=== PATIENT | male | born 1945 | race Caucasian/White ===

== ENCOUNTER 2016-08-26 09:21 | Emergency (ER) | payer MEDICARE ==
[2016-08-26 10:26] VITALS: BP 139/90
--- NOTE | 2016-08-26 13:03 | UC ---
Brenda Lee Matthew, [facility] on 08/26/16 at 1104 . Throat Pain/Nasal [place] HPI - HPI Summary HPI Summary: Nurse's Note: "Head congestion" and central chest congestion, runny nose with congestion, and ear discomfort x 7 days. Reports fever like-symptoms, extreme fatigue. Patient states he has felt very light-headed in the mornings when he wakes up. Note: EKG obtained by nurse, because of lightheadedness in [place] morning. Hx of significant HI in 2007. Vital signs stable, no c/o of chest pain, pulse oxygen 99%, no alcohol, non-smoker, Hx also significant for kidney stones, cellulites, EKG comparison; patient's current EKG shows Q wave in V1 V2. Previous EKG reveals a normal EKG with no Q waves in 2007. Diminished R waves in 2009 and on August 2010 Q waves in V1 and V2 with elevated J point in V2. There is no significant change between the EKG of September 06, 2010 and Current Q wave findings on todays EKG. In Room Note: A 71 y/o male presents to [facility] with nasal congestion since 7 days ago. Associated symptoms include chest tightness, lightheadedness, head congestion, chest congestion, rhinorrhea, ear discomfort, productive cough, and lightheadedness in the morning and when bending over - since 3 months ago. The lightheadedness alleviates after ambulation. The patient denies chest pain, nausea, vomiting, and diarrhea. The patient does not have pain radiating into his arms or jaw. The chest tightness is not similar to his previous HI. His daughter was recently ill. Hx of URI and sinus infections. Last Abx use was a year ago. FHx of CAD. - History of Current Complaint Chief Complaint: UCGeneralIllness Stated Complaint: CONGEST,COUGH Time Seen by Provider: 08/26/16 10:27 Hx Obtained From: Patient Onset/Duration: Gradual Onset, Lasting Days, Still Present Severity: Moderate Cough: Productive Associated Signs & Symptoms: Positive: Sinus Discomfort, Nasal Discharge. Negative: Vomiting - Allergies/Home Medications Allergies/Adverse Reactions: Allergies Allergy/AdvReac Type Severity Reaction Status Date / Time No Known Allergies Allergy Verified 03/11/14 16:41 PMH/Surg Hx/FS Hx/Imm Hx Endocrine History Of: Denies: Diabetes, Thyroid Disease Cardiovascular History Of: Reports: Cardiac Disorders - HI 2008 ("massive"), Hypertension Respiratory History Of: Reports: Bronchitis - DX IN 06/13 Denies: COPD, Asthma GI/ History Of: Reports: Kidney Stones - REMOVED SURGICALLY Denies: Ulcer Neurological History Of: Reports: Migraine - Surgical History Surgical History: Yes Surgery Procedure, Year, and Place: Vasectomy; Kidney Stones - Family History Known Family History: Positive: Cardiac Disease - Social History Alcohol Use: None Substance Use Type: None Smoking Status (MU): Never Smoked Tobacco Have You Smoked in the Last Year: No - Immunization History Most Recent Influenza Vaccination: FALL 2012 Most Recent Tetanus Shot: UP TO DATE Most Recent Pneumonia Vaccination: UNSURE Review of Systems Constitutional: Negative Skin: Negative Eyes: Negative ENT: Ear Ache, Nasal Discharge, Other - head congestion Respiratory: Cough - Productive, Other - chest congestion and tightness Cardiovascular: Negative Gastrointestinal: Negative Genitourinary: Negative Motor: Negative Neurovascular: Negative Musculoskeletal: Negative Neurological: Other - lightheadedness - relating to position change supine to standing, bending over Psychological: Negative All Other Systems Reviewed And Are Negative: Yes Physical Exam Triage Information Reviewed: Yes Appearance: Well-Appearing, No Pain Distress, Well-Nourished Vital Signs: Initial Vital Signs Temp 98 F 08/26/16 10:08 Pulse 61 08/26/16 10:08 Resp 16 08/26/16 10:08 BP 139/90 08/26/16 10:08 Pulse Ox 99 08/26/16 10:08 Vital Signs Reviewed: Yes Eyes: Positive: Conjunctiva Clear ENT: Positive: Pharynx normal, TMs normal, Other: - MILD TENDERNESS OVER MAXILLARY SINUS. Negative: Muffled/hoarse voice Neck: Positive: Supple, Nontender Respiratory: Positive: Chest non-tender, Lungs clear, Normal breath sounds, No respiratory distress, Other: - Intermittent Cough Cardiovascular: Positive: RRR, No Murmur, Other: - No pain upon palpation of the anterior chest wall Abdomen Description: Positive: Nontender, No Organomegaly, Soft Bowel Sounds: Positive: Present Musculoskeletal Exam: Normal Musculoskeletal: Positive: Strength Intact Neurological: Positive: Alert Psychological: Positive: Age Appropriate Behavior Skin Exam: Normal Skin: Negative: rashes Diagnostics - EKG Cardiac Rate: NL - 65 bpm Cardiac Rhythm: Sinus: Normal - Q waves in V1 V2; Q waves present in EKG from Throat Pain/Nasal Course/Dx - Course Assessment/Plan: Patient with a Hx of significant anterior HI presents with congestion, sinus discomfort, and cough. He also described brief bouts of orthostasis when he picks up objects or moves from supine to standing, which rapidly resolves and is not accompained by nausea, vomiting, or diaphoresis. Described this to the patient as possible orthostasis related to his anti- hypertensive medications. 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 Comparison of old EKGs does not suggest that the current chest discomfort is cardiac in origin. I explained all of the above with the patient and he voiced understanding. - Differential Dx/Diagnosis Differential Diagnosis/HQI/PQRI: Other - pneumonia, sinusitis, bronchitis, Provider Diagnoses: Sinusitis/ bronchitis Discharge - Discharge Plan Condition: Stable Disposition: HOME Prescriptions: Amoxicillin (*) 875 mg PO BID #20 tab MDD 2 Patient Education Materials: Sinusitis (ED), Acute Bronchitis (ED) Referrals: Tianna Garcia MD [Primary Care Provider] - Additional Instructions: WE DISCUSSED: Your EKG did not show a new heart problem. Begin your antibiotic for sinusitis/bronchitis. Amoxicillin, one pill twice a day. You also have dizziness changing position. This may be related to your blood pressure medication. Check with your doctor next week. Move slowly as you change position. The documentation as recorded by the Brenda gilmore Matthew accurately reflects the service I personally performed and the decisions made by me, Kennedy Rodriguez MD.
== END 2016-08-26 11:12 | disposition home or self-care (01) ==
LOC: UCEAST 09:21
DX: J32.9 Chronic sinusitis, unspecified (principal); J20.9 Acute bronchitis, unspecified; I25.2 Old myocardial infarction; R94.01 Abnormal electroencephalogram [EEG]
CPT/HCPCS: 93005; 99212; G0463

== ENCOUNTER 2016-10-11 16:46 | Emergency (ER) | payer MEDICARE ==
[2016-10-11 17:35] VITALS: BP 145/74
[2016-10-11] MEDS ORDERED: cefTRIAXone VIAL(*) 250 MG VIAL IM ONE (17:49)
[2016-10-11] MEDS ORDERED: Azithromycin TAB* 250 MG PO ONE (17:49)
--- NOTE | 2016-10-11 17:54 | UC ---
Complaint Male HPI - HPI Summary HPI Summary: 71 yo male receive a text today that his partner had gonorrhea he is asymptomatic Only desires testing for gc/chlamydia - History of Current Complaint Chief Complaint: UCGU Stated Complaint: PERSONAL Time Seen by Provider: 10/11/16 17:39 Hx Obtained From: Patient Onset/Duration: Sudden Onset - NA Timing: Constant - NA Severity Initially: Mild - NONE Severity Currently: None Pain Intensity: 0 Pain Scale Used: 0-10 Numeric Location: None Associated Signs And Symptoms: Positive: Negative Prior STD Hx: none - Allergies/Home Medications Allergies/Adverse Reactions: Allergies Allergy/AdvReac Type Severity Reaction Status Date / Time No Known Allergies Allergy Verified 10/11/16 17:26 PMH/Surg Hx/FS Hx/Imm Hx Endocrine History Of: Denies: Diabetes, Thyroid Disease Cardiovascular History Of: Reports: Cardiac Disorders - [place] 2007, Hypertension Respiratory History Of: Reports: Bronchitis - DX IN 06/13 Denies: COPD, Asthma GI/ History Of: Reports: Kidney Stones - REMOVED SURGICALLY Denies: Ulcer Neurological History Of: Reports: Migraine - Surgical History Surgical History: Yes Surgery Procedure, Year, and Place: Vasectomy; Kidney Stones - Family History Known Family History: Positive: Cardiac Disease - Social History Alcohol Use: None Substance Use Type: None Smoking Status (MU): Never Smoked Tobacco Have You Smoked in the Last Year: No - Immunization History Most Recent Influenza Vaccination: FALL 2012 Most Recent Tetanus Shot: UP TO DATE Most Recent Pneumonia Vaccination: UNSURE Review of Systems Constitutional: Negative Skin: Negative Eyes: Negative ENT: Negative Respiratory: Negative Cardiovascular: Negative Gastrointestinal: Negative Genitourinary: Negative Motor: Negative Neurovascular: Negative Musculoskeletal: Negative Neurological: Negative Psychological: Negative All Other Systems Reviewed And Are Negative: Yes Physical Exam Triage Information Reviewed: Yes Appearance: Well-Appearing, No Pain Distress, Well-Nourished Vital Signs: Initial Vital Signs Temp 100.2 F 10/11/16 17:29 Pulse 74 10/11/16 17:29 Resp 16 10/11/16 17:29 BP 145/74 10/11/16 17:29 Pulse Ox 96 10/11/16 17:29 Vital Signs Reviewed: Yes ENT: Positive: Hearing grossly normal. Negative: Nasal congestion, Nasal drainage, Trismus, Muffled/hoarse voice Neck: Positive: Supple, Nontender Respiratory: Positive: Lungs clear, Normal breath sounds, No respiratory distress Cardiovascular: Positive: RRR, No Murmur Abdomen Description: Positive: Nontender - penis no lesions or d/c testicles normal orientation and lie, Other: Musculoskeletal: Positive: ROM Intact, No Edema Neurological: Positive: Alert Psychological Exam: Normal Skin Exam: Normal Complaint Male Course/Dx - Differential Dx/Diagnosis Provider Diagnoses: exposure to gonorrhea Discharge - Discharge Plan Condition: Stable Disposition: HOME Patient Education Materials: Sexually Transmitted Diseases (ED) Referrals: Tianna Garcia MD [Primary Care Provider] - If Needed Additional Instructions: we will treat you due to your exposure tests pending
[2016-10-11] MEDS ORDERED: cefTRIAXone VIAL(*) 1,000 MG VIAL ONE (18:15)
[2016-10-11] MEDS ORDERED: Lidocaine 1% MPF* 2 ML VIAL ONE (18:16)
== END 2016-10-11 18:58 | disposition home or self-care (01) ==
LOC: UCCORT 16:46
DX: Z20.2 Contact with and (suspected) exposure to infections with a predominantly sexual mode of transmission (principal); I25.2 Old myocardial infarction; I10 Essential (primary) hypertension; G43.909 Migraine, unspecified, not intractable, without status migrainosus; Z87.442 Personal history of urinary calculi
CPT/HCPCS: 81003; 87086; 87491; 87591; 96372; 99212; A9270-GY; G0463; J0696

== ENCOUNTER 2017-02-06 10:57 | Emergency (ER) | payer MEDICARE ==
[2017-02-06 11:01] VITALS: BP 151/77
--- NOTE | 2017-02-06 11:23 | UC ---
Respiratory Complaint HPI - HPI Summary HPI Summary: 3 DAYS OF PRODUCTIVE COUGH, CONGESTION, SINUS PRESSURE, MILD ST AND DRAINAGE. NO MEASURED FEVER BUT HAS HAD SWEATS. NO N/V/D. - History of Current Complaint Chief Complaint: UCRespiratory Stated Complaint: URI Time Seen by Provider: 02/06/17 11:15 Hx Obtained From: Patient Onset/Duration: Gradual Onset, Lasting Days, Still Present Timing: Constant Severity Initially: Moderate Severity Currently: Moderate Pain Intensity: 0 Pain Scale Used: 0-10 Numeric Character: Cough: Productive Aggravating Factors: Nothing Alleviating Factors: Nothing Associated Signs And Symptoms: Positive: URI, Nasal Congestion, Sinus Discomfort. Negative: Fever, Chills, Wheezing - Allergies/Home Medications Allergies/Adverse Reactions: Allergies Allergy/AdvReac Type Severity Reaction Status Date / Time No Known Allergies Allergy Verified 02/06/17 11:02 PMH/Surg Hx/FS Hx/Imm Hx Cardiovascular History: Cardiac Disease, Hypertension - Surgical History Surgical History: Yes Surgery Procedure, Year, and Place: Vasectomy; Kidney Stones - Family History Known Family History: Positive: Cardiac Disease - Social History Alcohol Use: None Substance Use Type: None Smoking Status (MU): Never Smoked Tobacco Have You Smoked in the Last Year: No - Immunization History Most Recent Influenza Vaccination: FALL 2012 Most Recent Tetanus Shot: UP TO DATE Most Recent Pneumonia Vaccination: UNSURE Review of Systems Constitutional: Negative ENT: Sore Throat, Nasal Discharge Respiratory: Cough Cardiovascular: Negative Gastrointestinal: Negative Neurological: Headache All Other Systems Reviewed And Are Negative: Yes Physical Exam Triage Information Reviewed: Yes Appearance: Well-Appearing, No Pain Distress, Well-Nourished Vital Signs: Initial Vital Signs Temp 98.2 F 02/06/17 10:59 Pulse 86 02/06/17 10:59 Resp 20 02/06/17 10:59 BP 151/77 02/06/17 10:59 Pulse Ox 99 02/06/17 10:59 Vital Signs Reviewed: Yes Eyes: Positive: Conjunctiva Clear ENT: Positive: Hearing grossly normal, Pharynx normal, TMs normal Neck: Positive: Supple, Nontender, No Lymphadenopathy Respiratory Exam: Normal Cardiovascular Exam: Normal Abdomen Description: Positive: Soft Musculoskeletal: Positive: No Edema Neurological: Positive: Alert Psychological: Positive: Age Appropriate Behavior Skin: Negative: rashes UC Diagnostic Evaluation - Laboratory O2 Sat by Pulse Oximetry: 99 Respiratory Course/Dx - Differential Dx/Diagnosis Provider Diagnoses: ACUTE SINUSITIS Discharge - Discharge Plan Condition: Stable Disposition: HOME Prescriptions: Amoxicillin/Clavulanate TAB* [Augmentin TAB 875*] 875 mg PO BID #20 tab guaiFENesin/CODIEN 100MG-10MG* [Robitussin AC 100Mg-10Mg*] 5 - 10 ml PO Q6H PRN #150 ml MDD 40ml PRN Reason: Cough Patient Education Materials: Sinusitis (ED) Referrals: Tianna Garcia MD [Primary Care Provider] - If Needed Additional Instructions: WILL COVER YOU WITH ANTIBIOTICS TODAY BUT PLEASE CONSIDER THAT YOU MAY HAVE A VIRAL INFECTION THAT WILL RESOLVE WITH TIME. COUGH MEDICINE AND OTC ALEVE NEEDED FOR SYMPTOM CONTROL. SEEK FOLLOW-UP IF YOU ARE NOT IMPROVING EXPECTED. PLEASE REMEMBER NOT TO TAKE THE COUGH MEDICINE WITH YOUR TRAMADOL THE CODEINE WITH THE TRAMADOL CAN HAVE ADDITIVE SEDATING EFFECTS.
== END 2017-02-06 11:43 | disposition home or self-care (01) ==
LOC: UCEAST 10:57
DX: J01.90 Acute sinusitis, unspecified (principal); I10 Essential (primary) hypertension; Z87.442 Personal history of urinary calculi
CPT/HCPCS: 99212; G0463

== ENCOUNTER 2018-05-24 13:22 | Emergency (ER) | payer MEDICARE ==
[2018-05-24 13:39] VITALS: BP 142/82
[2018-05-24] MEDS ORDERED: Aspirin 81 mg CHEW TAB* 81 MG TAB.CHEW PO ONE (14:04)
--- NOTE | 2018-05-24 14:05 | UC ---
Cardiac HPI - HPI Summary HPI Summary: 72-year-old male comes in to clinic today with a chief complaint of chest tightness. Been going on for about 3 days. It's intermittent. It's worse with deep breaths. At its worse is an 8 out of 10 right now it's about a 2 out of 10. It's in the center of his chest is not radiating anywhere. No edema no abdominal pain no known trauma. Patient had a heart attack back in 2007. He has not taken any aspirin today. He is not nauseous is not sweaty is slightly short of breath. - History of Current Complaint Chief Complaint: UCChestPain Stated Complaint: CHEST TIGHTNESS Time Seen by Provider: 05/24/18 13:41 Pain Intensity: 0 - Allergy/Home Medications Allergies/Adverse Reactions: Allergies Allergy/AdvReac Type Severity Reaction Status Date / Time No Known Allergies Allergy Verified 05/24/18 13:39 Home Medications: Home Medications Metoprolol Tartrate TAB* [Lopressor TAB*] 25 mg PO DAILY 05/24/18 [History Confirmed 05/24/18] Multivitamin [Multivitamins] 1 cap PO DAILY 05/24/18 [History Confirmed 05/24/18 ] Niacin [Niaspan] 500 mg PO DAILY 05/24/18 [History Confirmed 05/24/18] diPHENhydraMINE PO* [Benadryl PO 25 MG TAB*] 25 mg PO BEDTIME PRN 05/24/18 [ History Confirmed 05/24/18] PMH/Surg Hx/FS Hx/Imm Hx Previously Healthy: Yes Cardiovascular History: Hypertension, Myocardial Infarction - Surgical History Surgical History: Yes Surgery Procedure, Year, and Place: Vasectomy; Kidney Stones; hernia - Family History Known Family History: Positive: Cardiac Disease - Social History Alcohol Use: None Substance Use Type: None Smoking Status (MU): Never Smoked Tobacco Have You Smoked in the Last Year: No - Immunization History Most Recent Influenza Vaccination: FALL 2012 Most Recent Tetanus Shot: UP TO DATE Most Recent Pneumonia Vaccination: UNSURE Review of Systems All Other Systems Reviewed And Are Negative: Yes Constitutional: Positive: Negative Skin: Positive: Negative Eyes: Positive: Negative ENT: Positive: Negative Respiratory: Positive: Shortness Of Breath Cardiovascular: Positive: Chest Pain Gastrointestinal: Positive: Negative Motor: Positive: Negative Neurovascular: Positive: Negative Musculoskeletal: Positive: Negative Neurological: Positive: Negative Psychological: Positive: Negative Is Patient Immunocompromised?: No Physical Exam Triage Information Reviewed: Yes Appearance: Well-Appearing, No Pain Distress, Well-Nourished Vital Signs: Initial Vital Signs Temp 98.6 F 05/24/18 13:36 Pulse 72 05/24/18 13:36 Resp 18 05/24/18 13:36 BP 142/82 05/24/18 13:36 Pulse Ox 96 05/24/18 13:36 Vital Signs Reviewed: Yes Eye Exam: Normal Eyes: Positive: Conjunctiva Clear Neck exam: Normal Neck: Positive: Supple Respiratory Exam: Normal Respiratory: Positive: Chest non-tender, Lungs clear, Normal breath sounds, No respiratory distress Cardiovascular Exam: Normal Cardiovascular: Positive: RRR Abdomen Description: Positive: Nontender, Soft. Negative: Distended Musculoskeletal Exam: Normal Musculoskeletal: Positive: Strength Intact, ROM Intact, No Edema Neurological Exam: Normal Neurological: Positive: Alert, Muscle Tone Normal Psychological Exam: Normal Psychological: Positive: Age Appropriate Behavior Skin Exam: Normal Diagnostics - EKG Cardiac Rate: NL - AT 13:31 Cardiac Rhythm: Sinus: Normal - 69 BPM Ectopy: None ST Segment: Non-Specific EKG Comparison: No Significant Change - Assessment/Plan Course Of Treatment: The EKG today shows normal sinus 69 beats per minutes there is a flipped T in 3 and flat T in aVF. EKG is similar to the EKG from August 2016. Patient given 324 mg of aspirin here in clinic and I recommended he go to the emergency department for further evaluation. He declined transfer by ambulance and plans to drive himself. Emergency department was informed of the patient. - Clinical Impression Provider Diagnoses: CHEST PAIN Discharge - Sign-Out/Discharge Documenting (check all that apply): Patient Departure All imaging exams completed and their final reports reviewed: No Studies - Discharge Plan Condition: Stable Disposition: HOME-RECOMMEND TO ED Patient Education Materials: Chest Pain (ED) Referrals: Tianna Garcia MD [Primary Care Provider] - Additional Instructions: GO DIRECTLY TO THE EMERGENCY DEPARTMENT FOR FURTHER EVALUATION. - Billing Disposition and Condition Condition: STABLE Disposition: Home-Recommend to ED
== END 2018-05-24 14:09 | disposition home health service (06) ==
LOC: UCEAST 13:22
DX: R07.9 Chest pain, unspecified (principal); I25.2 Old myocardial infarction
CPT/HCPCS: 93005; 99212; A9270-GY; G0463

== ENCOUNTER 2018-05-24 14:30 | Emergency (ER) | payer MEDICARE ==
[2018-05-24] MEDS ORDERED: Nitroglycerin TAB 0.4 MG* 0.4 MG TAB SL ONE (14:46)
--- NOTE | 2018-05-24 14:46 | ED ---
HPI Chest Pain - HPI Summary HPI Summary: A 72 y/o male presents to [facility] with a chief complaint of chest pain since 05/22. He rates his pain as a constant 2/10 and describes the pain as chest tightness. He claims that swallowing and deep breaths worsens her pain. He also c/o SOB. He denies N/V. He has a Hx of AZ but states that his symptoms were not similar and much more severe when he had his AZ. He took 4 aspirin and 2 tramadol this morning. He states that he usually takes 2 tramadol in the morning and 2 tramadol at night. - History of Current Complaint Chief Complaint: EDChestPainROMI Time Seen by Provider: 05/24/18 14:41 Hx Obtained From: Patient Onset/Duration: Started Days Ago, Still Present Timing: Constant, Lasting Days Initial Severity: Mild Current Severity: Mild Pain Intensity: 2 Pain Scale Used: 0-10 Numeric Character: Tightness Aggravating Factor(s): Deep Breaths, Alcohol - swallowing Associated Signs and Symptoms: Positive: Shortness of Breath. Negative: Nausea , Vomiting - Allergy/Home Medications Allergies/Adverse Reactions: Allergies Allergy/AdvReac Type Severity Reaction Status Date / Time No Known Allergies Allergy Verified 05/24/18 14:38 PMH/Surg Hx/FS Hx/Imm Hx Endocrine/Hematology History: Denies: Hx Diabetes, Hx Thyroid Disease Cardiovascular History: Reports: Hx Coronary Artery Disease, Hx Hypercholesterolemia, Hx Hypertension Respiratory History: Reports: Hx Seasonal Allergies, Hx Sleep Apnea Denies: Hx Asthma, Hx Chronic Obstructive Pulmonary Disease (COPD) GI History: Denies: Hx Ulcer History: Reports: Hx Kidney Stones - REMOVED SURGICALLY Sensory History: Reports: Hx Contacts or Glasses Opthamlomology History: Reports: Hx Contacts or Glasses Neurological History: Reports: Hx Migraine - Surgical History Surgery Procedure, Year, and Place: Vasectomy; Kidney Stones; hernia Infectious Disease History: No Infectious Disease History: Denies: Hx Clostridium Difficile, Hx Hepatitis, Hx Human Immunodeficiency Virus (HIV), Hx of Known/Suspected MRSA, Hx Shingles, Hx Tuberculosis, Hx Known/ Suspected VRE, Hx Known/Suspected VRSA, History Other Infectious Disease, Traveled Outside the [place] in Last 30 Days - Family History Known Family History: Positive: Cardiac Disease Negative: Diabetes - Social History Alcohol Use: None Substance Use Type: Reports: None Smoking Status (MU): Never Smoked Tobacco Have You Smoked in the Last Year: No Review of Systems Positive: Chest Pain Positive: Shortness Of Breath Negative: Vomiting, Nausea All Other Systems Reviewed And Are Negative: Yes Physical Exam - Summary Physical Exam Summary: VITAL SIGNS: Reviewed. GENERAL: Patient is a well-developed and nourished MALE who is lying comfortable in the stretcher. Patient is not in any acute respiratory distress. HEAD AND FACE: No signs of trauma. No ecchymosis, hematomas or skull depressions. No sinus tenderness. EYES: PERRLA, EOMI x 2, No injected conjunctiva, no nystagmus. EARS: Hearing grossly intact. Ear canals and tympanic membranes are within normal limits. MOUTH: Oropharynx within normal limits. NECK: Supple, trachea is midline, no adenopathy, no JVD, no carotid bruit, no c- spine tenderness, neck with full ROM. CHEST: Symmetric, no tenderness at palpation LUNGS: Clear to auscultation bilaterally. No wheezing or crackles. CVS: Regular rate and rhythm, S1 and S2 present, no murmurs or gallops appreciated. ABDOMEN: Soft, non-tender. No signs of distention. No rebound no guarding, and no masses palpated. Bowel sounds are normal. EXTREMITIES: FROM in all major joints, no edema, no cyanosis or clubbing. NEURO: Alert and oriented x 3. No acute neurological deficits. Speech is normal and follows commands. SKIN: Dry and warm Triage Information Reviewed: Yes Vital Signs On Initial Exam: Initial Vitals Temp Pulse Resp BP Pulse Ox 97.5 F 73 16 147/88 96 05/24/18 14:34 05/24/18 14:34 05/24/18 14:34 05/24/18 14:34 05/24/18 14:34 Vital Signs Reviewed: Yes Diagnostics - Vital Signs Vital Signs Temp Pulse Resp BP Pulse Ox 05/24/18 14:34 97.5 F 73 16 147/88 96 - Laboratory Result Diagrams: 05/24/18 14:59 05/24/18 14:59 Lab Statement: Any lab studies that have been ordered have been reviewed, and results considered in the medical decision making process. - Radiology CXR Radiology Interpretation Completed By: Radiologist - No active cardiopulmonary disease is noted. ED physician reviewed this imaging report. - EKG 14:59 Cardiac Rate: NL - 70 bpm EKG Rhythm: Sinus Rhythm Summary of EKG Findings: no ST elevation, inverted t-wave v3 similar to previous EKG done 09/06/10. Chest Pain Course/Dx - Course Assessment/Plan: A 72 y/o male presents to [facility] with a chief complaint of chest pain since 05/22/18. He rates his pain as a constant 2/10 and describes the pain as chest tightness. He claims that swallowing and deep breaths worsens her pain. He also c/o SOB. He denies N/V. He has a Hx of AZ but states that his symptoms were not similar and much more severe when he had his AZ. He took 4 aspirin and 2 tramadol this morning. He states that he usually takes 2 tramadol in the morning and 2 tramadol at night. Blood work without any significant abnormality except for magnesium 1.8 for which the patient was given magnesium by mouth. D-dimer is elevated to 529. Therefore I decided to a chest CTA to rule out PE. The patient is awaiting for the chest CTA and at this time the patient will be signed out to Dr. Novak for follow-up the chest CT results and if negative the patient can be discharged home with follow-up with primary care physician. At this time the patient is hemodynamically stable alert oriented 3. - Chest Pain Differential Diagnosis/HQI/PQRI: Acute AZ, ACS, Angina, CHF, Chest Wall, GI Disease - Diagnoses Provider Diagnoses: Atypical chest pain, Esophagitis Discharge - Sign-Out/Discharge Documenting (check all that apply): Sign-Out Patient Signing out patient TO: Shlomo Novak - Discharge Plan Condition: Improved Disposition: HOME Prescriptions: Famotidine TAB* [Pepcid 20 MG TAB*] 20 mg PO BID #20 tab Pantoprazole TAB (NF) [Protonix TAB (NF)] 40 mg PO DAILY #30 tab Sucralfate TAB* [Carafate*] 1 gm PO ACHS #40 tab Patient Education Materials: Chest Pain (ED), Corrosive Esophagitis (ED) Referrals: Tianna Garcia MD [Primary Care Provider] - Additional Instructions: Call your doctor first thing in the morning to schedule prompt follow-up. Follow up with your deicer repairer on Sunday. Return if occult he breathing, recurrent chest pain, worse, new symptoms or other concerns. Avoid spicy foods , alcohol and anti-inflammatory medications. - Attestation Statements Document Initiated by Scribe: Yes Documenting Scribe: Eloy Gallagher Provider For Whom Stevee is Documenting (Include Credential): Sam Ortiz MD Scribe Attestation: IEloy, scribed for Sam Ortiz MD on 05/25/18 at 0716. Scribe Documentation Reviewed: Yes Provider Attestation: The documentation as recorded by the Eloy gilmore accurately reflects the service I personally performed and the decisions made by me, Sam Ortiz MD Attestations User Type: Provider with Scribe Provider Attestation: The documentation recorded by the scribe accurately reflects the service I personally performed and the decisions made by me.
[2018-05-24 15:05] LABS: ABS Basophils 0 10^3/ul (0-0.2); ABS Eosinophils 0.1 10^3/ul (0-0.6); ABS Lymphocytes 2.4 10^3/ul (1.0-4.8); ABS Monocytes 0.7 10^3/ul (0-0.8); ABS Neutrophils 4.2 10^3/ul (1.5-7.7); ABS Nucleated RBC 0 10^3/ul; Eosinophil % 1.2 % (0-6); Hematocrit 42 % (42-52); Hemoglobin 14.3 g/dl (14.0-18.0); Mean Corpuscular HGB Conc 34 g/dl (31-36); Mean Corpuscular Hemoglobin 30 pg (27-31); Mean Corpuscular Volume 87 fL (80-94); Nucleated Red Blood Cells % 0; Platelet Count 171 10^3/ul (150-450); Red Blood Count 4.79 10^6/ul (4.00-5.40); Red Cell Distribution Width 13 % (10.5-15); White Blood Count 7.4 10^3/ul (3.5-10.8)
[2018-05-24 15:15] LABS: INR 0.94 (0.77-1.02)
[2018-05-24 15:26] LABS: EGFR Non-African American 63.8 (>60)
[2018-05-24] MEDS ORDERED: Magnesium Oxide TAB* 400 MG PO ONE (16:36)
[2018-05-24] MEDS ORDERED: Iohexol 350* (CONTRAST) 500 ML MDV IV ONE (18:23)
[2018-05-24 18:52] LABS: Urine Appearance Clear; Urine Blood Negative (Negative); Urine Color Yellow; Urine Ketones Negative (Negative); Urine Protein Negative (Negative); Urine Specific Gravity 1.011 (1.010-1.030); Urine Urobilinogen Negative (Negative)
[2018-05-24] MEDS ORDERED: Sucralfate TAB* 1 GM PO ONE (19:49)
[2018-05-24] MEDS ORDERED: Famotidine TAB* 20 MG PO ONE (19:49)
--- NOTE | 2018-05-24 20:08 | ED ---
Progress - Progress Note Progress Note: Receiving sign out from Dr. Ortiz, pending CTA. Chest Thorax CTA: No acute findings. Specifically, no pulmonary embolism. ED physician reviewed radiology report. Pt will be discharged with a final dx of atypical chest pain and esophagitis. Re-Evaluation - Re-Evaluation First Eval Re-Evaluation Time: 20:00 Change: Improved Comment: Pt reports epigastric pain, which mainly occurs right after eating. Pt has no RUQ pain. He feels fine and is ready to be discharged. Course/Dx - Course Course Of Treatment: Patient with substernal/epigastric discomfort after eating in recurrent fashion. No pain in the right upper quadrant. Possible esophagitis. Started on Carafate, Pepcid. Follow closely. CT of the chest is negative. Troponin 2 is negative. - Diagnoses Provider Diagnoses: Atypical chest pain, Esophagitis Discharge - Sign-Out/Discharge Documenting (check all that apply): Patient Departure - Discharge, Receiving Sign-Out Receiving patient FROM: Sam Ortiz - Discharge Plan Condition: Improved Disposition: HOME Prescriptions: Famotidine TAB* [Pepcid 20 MG TAB*] 20 mg PO BID #20 tab Pantoprazole TAB (NF) [Protonix TAB (NF)] 40 mg PO DAILY #30 tab Sucralfate TAB* [Carafate*] 1 gm PO ACHS #40 tab Patient Education Materials: Chest Pain (ED), Corrosive Esophagitis (ED) Referrals: Tianna Garcia MD [Primary Care Provider] - Additional Instructions: Call your doctor first thing in the morning to schedule prompt follow-up. 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 Return if occult he breathing, recurrent chest pain, worse, new symptoms or other concerns. Avoid spicy foods , alcohol and anti-inflammatory medications. - Billing Disposition and Condition Condition: IMPROVED Disposition: Home - Attestation Statements Document Initiated by Scribe: Yes Documenting Scribe: Prachi Rider Provider For Whom Marv is Documenting (Include Credential): Shlomo Novak MD Scribe Attestation: Prachi Lee scribed for Shlomo Novak MD on 05/25/18 at 0123. Scribe Documentation Reviewed: Yes Provider Attestation: The documentation as recorded by the Prachi gilmore accurately reflects the service I personally performed and the decisions made by me, Shlomo Novak MD
[2018-05-24 20:36] VITALS: BP 135/76
== END 2018-05-24 20:51 | disposition home or self-care (01) ==
LOC: ED 14:30
DX: R07.89 Other chest pain (principal); K20.9 Esophagitis, unspecified; R06.02 Shortness of breath; I25.10 Atherosclerotic heart disease of native coronary artery without angina pectoris; Z87.442 Personal history of urinary calculi; I25.2 Old myocardial infarction
CPT/HCPCS: 36415; 71045; 71275; 80053; 81003; 82550; 82553; 83605; 83735; 83880; 84443; 84484; 85025; 85379; 85610; 85730; 93005; 99282; A9270-GY; Q9967

== ENCOUNTER 2018-09-13 17:09 | Emergency (ER) | payer MEDICARE ==
--- OUTSIDE RECORDS SUMMARY | 2018-09-13 17:15 | XMS REPORT | Continuity of Care Document ---
:1945 External Reference #:[id number] Author Name Tavares Li MD Address [facility] [place] [address] Care Team Providers Name Role Phone Tianna Garcia MD Care Team Information Campaign Consultant Unavailable Tianna Garcia MD Primary Care Physician Unavailable Payers Date Identification Numbers Payment Provider Subscriber Expires: 2013 Policy Number: [id number] [facility] Pro Hernandez Signor PayID: [id number] [address] [address] [place] [address] Policy Number: [id number] Medicare Pro Hernandez Signor PayID: [id number] [facility] [address] [place] [address] Policy Number: [id number] [facility] Option Pro Hernandez Signor PayID: [id number] Claims, [address] [place] [address] Advance Directives Description No Information Available Problems Date Description Provider Status Onset: 08/28/2018 Long-term current use of anticoagulant Tavares Li MD Active Onset: 08/28/2018 History of polyp of colon Tavares Li MD Active Family History Description No Information Available Social History Type Date Description Comments Sex Unknown Tobacco Use Start: Unknown Patient has never smoked Smoking Status Reviewed: 08/28/18 Patient has never smoked Allergies, Adverse Reactions, Alerts Description No Known Drug Allergies Medications Medication Date Status Form Strength Qnty SIG Indications Ordering Provider Colyte With 08/28/ Active Solution 240gm 4000ml by mouth Z86.010 Tavares Moreno Flavor Packs 2019 Rec as liz Li MD Tramadol HCL 00/00/ Active Tablets 50mg Unknown 0000 Niacin ER 00/00/ Active Tablets ER 1000mg Garcia, 0000 Tianna Mckinney MD Atorvastatin 00/00/ Active Tablets 40mg Garcia, Calcium 0000 Tianna Mckinney MD Metoprolol 00// Active Tablets 25mg Garcia, Tartrate 0000 Tianna Mckinney MD Xarelto / Active Tablets 20mg Take One Unknown 0000 Tablet By Mouth Every Day Sertraline HCL / Active Tablets 50mg Take One Unknown 0000 Tablet By Mouth Every Day Colyte-Flavor 09/02/ Hx Solution 240gm 1units as Pepe Crandall 2013 - Rec directed [facility] 2018 Doxycycline / Hx Capsules 100mg Unknown Hyclate - 2018 Qvar / Hx Aerosol 80mcg/Act Unknown - 2018 Immunizations Description No Information Available Vital Signs Date Vital Result Comment 08/28/2018 11:00am Height 72 inches 6'0" Weight 217.00 lb BP Systolic 147 mmHg BP Diastolic 84 mmHg Heart Rate 67 /min BMI (Body Mass Index) 29.4 kg/m2 07/17/2018 9:31am Height 72 inches 6'0" Weight 214.00 lb BMI (Body Mass Index) 29.0 kg/m2 Results Test Date Facility Test Result H/L Range Note BMP W/O Egfr(!) 07/10/2018 [facility] Sodium(!) <pending> Potassium(!) <pending> Chloride Serum/Plasma(!) <pending> Carbon Dioxide Ser/Plasm(!) <pending> BUN - Urea Nitrogen(!) <pending> Calcium Ser/Plasma Mass/Vol(!) <pending> Creatinine Serum Mass/Vol(!) <pending> Glucose Serum(!) <pending> CBC W/Auto 07/10/2018 [facility] White Blood <pending> Differential(!) Count Ser Auto CNT RBC Red Blood Count <pending> Hemoglobin Blood <pending> Hematocrit <pending> MCV (Corpuscular Volume) <pending> MCH (Corpuscular Hemoglobin) <pending> MCHC (Corpuscular Hemog Conc) <pending> RDW <pending> Platelet Count Blood Auto CNT <pending> MPV <pending> Lymph% <pending> [place]% <pending> Neutrophil % <pending> Absolute Lymphocytes <pending> Absolute Monocytes <pending> Absolute Neutrophils <pending> Surgical Pathology 09/04/2013 [facility] [place] DATE: 09/08/ <SEE NOTE> Procedures Date Code Description Status 09/04/2013 32986 Colonscopy+Biopsy Completed Encounters Description No Information Available Plan of Treatment Future Appointment(s):10/22/2018 9:15 am - Tavares Li MD at [facility]08/28/2018 - Tavares Li MDZ86.010 Personal history of colonic polypsNew Medication:Colyte With Flavor Packs 240 gm - by mouth as directedComments:RISKS AND BENEFITS OF THE PROCEDURE WERE DISCUSSED WITH PATIENT. The patient comes in today to discuss another colonoscopy. He is doing well. He has had tubular adenomatous polyps in the past. Jennifer is on Xarelto. He was started on this for a DVT. He has stopped it in the past. I have askedhim to stop this for 3 days prior to the colonoscopy and I will confirm this with his primary care physician Dr. 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
[2018-09-13 17:59] VITALS: BP 149/87
[2018-09-13] MEDS ORDERED: Albuterol/Ipratropium NEB.SOL* Albuterol 2.5 MG/Ipratropium 0.5 MG 3 ML INH ONE (19:10)
[2018-09-13 19:21] LABS: Influenza A Molecular POSITIVE (Negative)
--- NOTE | 2018-09-13 19:32 | UC ---
FLU HPI - HPI Summary HPI Summary: Pt presents with c/o chills, cough, SOB, chest tightness, nasal congestion X 1 day. - History of Current Complaint Chief Complaint: UCGeneralIllness Stated Complaint: URI Time Seen by Provider: 09/13/18 18:55 Hx Obtained From: Patient Onset/Duration: Sudden Onset, Lasting Days, Still Present Severity Currently: Moderate Severity Initially: Moderate Pain Intensity: 5 Associated Signs & Symptoms: Positive: Fever, Myalgia, Cough, Sore Throat, Nasal Congestion, Headache Related Hx: Possible Flu/Infectious Exposure - Risk Factors Influenza Risk Factors: Negative - Allergy/Home Medications Allergies/Adverse Reactions: Allergies Allergy/AdvReac Type Severity Reaction Status Date / Time No Known Allergies Allergy Verified 09/13/18 17:59 Home Medications: Home Medications Rivaroxaban TAB(*) [Xarelto 10 mg (*)] 10 mg PO DAILY 09/13/18 [History Confirmed 09/13/18] PMH/Surg Hx/FS Hx/Imm Hx Cardiovascular History: Cardiac Disease, Hypertension - Surgical History Surgical History: Yes Surgery Procedure, Year, and Place: Vasectomy; Kidney Stones; hernia - Family History Known Family History: Positive: Cardiac Disease Negative: Diabetes - Social History Occupation: Retired Lives: With Family Alcohol Use: None Substance Use Type: None Smoking Status (MU): Never Smoked Tobacco Have You Smoked in the Last Year: No - Immunization History Most Recent Influenza Vaccination: FALL 2017 Most Recent Tetanus Shot: UP TO DATE Most Recent Pneumonia Vaccination: UNSURE Review of Systems All Other Systems Reviewed And Are Negative: Yes Constitutional: Positive: Fever, Chills, Fatigue Skin: Positive: Negative Eyes: Positive: Negative ENT: Positive: Sinus Congestion Respiratory: Positive: Cough Cardiovascular: Positive: Chest Pain Gastrointestinal: Positive: Negative Genitourinary: Positive: Negative Motor: Positive: Negative Neurovascular: Positive: Negative Musculoskeletal: Positive: Myalgia Neurological: Positive: Negative Psychological: Positive: Negative Is Patient Immunocompromised?: No Physical Exam Triage Information Reviewed: Yes Appearance: Ill-Appearing Vital Signs: Initial Vital Signs Temp 98.7 F 09/13/18 17:53 Pulse 76 09/13/18 17:53 Resp 18 09/13/18 17:53 BP 149/87 09/13/18 17:53 Pulse Ox 96 09/13/18 17:53 Vital Signs Reviewed: Yes Eye Exam: Normal ENT: Positive: Nasal congestion Dental Exam: Normal Neck exam: Normal Respiratory Exam: Normal Cardiovascular Exam: Normal Musculoskeletal Exam: Normal Neurological Exam: Normal Psychological Exam: Normal Skin Exam: Normal Flu Course/Dx - Differential Dx/Diagnosis Differential Diagnosis/HQI/PQRI: Influenza, Upper Respiratory Infection Provider Diagnosis: Influenza A Discharge - Sign-Out/Discharge Documenting (check all that apply): Patient Departure All imaging exams completed and their final reports reviewed: No Studies - Discharge Plan Condition: Stable Disposition: HOME Prescriptions: Albuterol HFA INHALER* [Ventolin HFA Inhaler*] 1 - 2 puff INH Q4H PRN #1 mdi PRN Reason: Sob/Wheezing Benzonatate CAP* [Tessalon 100 MG CAP*] 200 mg PO Q8H PRN #30 cap PRN Reason: Cough Oseltamivir CAP* [Tamiflu CAP*] 75 mg PO Q12H #10 cap Patient Education Materials: Influenza (ED) Referrals: Tianna Garcia MD [Primary Care Provider] - If Needed - Billing Disposition and Condition Condition: STABLE Disposition: Home
[2018-09-13] MEDS ORDERED: Oseltamivir CAP* 75 MG CAP PO ONE (20:02)
== END 2018-09-13 20:15 | disposition home or self-care (01) ==
LOC: UCEAST 17:09
DX: J10.1 Influenza due to other identified influenza virus with other respiratory manifestations (principal)
CPT/HCPCS: 99212; A9270-GY; G0463

== ENCOUNTER 2018-10-15 13:03 | Emergency (ER) | payer MEDICARE ==
[2018-10-15 14:57] VITALS: BP 154/91
--- NOTE | 2018-10-15 15:46 | UC ---
Complaint Male HPI - HPI Summary HPI Summary: 73 yo male with dysuria which started today many partners bisexual no f/c no uretheral d/c no back or abd pain no problems starting stream of urine - History of Current Complaint Chief Complaint: UCSTDScreening Stated Complaint: PERSONAL Time Seen by Provider: 10/15/18 15:05 Hx Obtained From: Patient Onset/Duration: Gradual Onset, Lasting Hours Timing: Intermittent, Lasting Minutes Severity Initially: Mild Severity Currently: None Pain Intensity: 0 Location: Penis Character: Burning Aggravating Factor(s): Voiding Associated Signs And Symptoms: Positive: Dysuria. Negative: Diaphoresis, Back Pain, Fever, Hematuria, Constipation, Blood in Stool, Rectal Pain, Appetite, Nausea, Vomiting(# Of Episodes =) Prior STD Hx: neg - Allergies/Home Medications Allergies/Adverse Reactions: Allergies Allergy/AdvReac Type Severity Reaction Status Date / Time No Known Allergies Allergy Verified 10/15/18 14:58 Home Medications: Home Medications Atorvastatin* [Lipitor*] 10 mg PO DAILY 10/15/18 [History Confirmed 10/15/18] PMH/Surg Hx/FS Hx/Imm Hx Previously Healthy: Yes Endocrine History: Dyslipidemia Cardiovascular History: Hypertension, Atrial Fibrillation - Surgical History Surgical History: Yes Surgery Procedure, Year, and Place: Vasectomy; Kidney Stones; hernia - Family History Known Family History: Positive: Cardiac Disease Negative: Diabetes - Social History Alcohol Use: None Substance Use Type: None Smoking Status (MU): Never Smoked Tobacco Have You Smoked in the Last Year: No - Immunization History Most Recent Influenza Vaccination: FALL 2017 Most Recent Tetanus Shot: UP TO DATE Most Recent Pneumonia Vaccination: UNSURE Review of Systems All Other Systems Reviewed And Are Negative: Yes Constitutional: Positive: Negative Skin: Positive: Negative Eyes: Positive: Negative ENT: Positive: Negative Respiratory: Positive: Negative Cardiovascular: Positive: Negative Gastrointestinal: Positive: Negative Genitourinary: Positive: Dysuria, Frequency, Urgency Motor: Positive: Negative Neurovascular: Positive: Negative Musculoskeletal: Positive: Negative Neurological: Positive: Negative Psychological: Positive: Negative Physical Exam Triage Information Reviewed: Yes Appearance: Well-Appearing, No Pain Distress, Well-Nourished Vital Signs: Initial Vital Signs Temp 98 F 10/15/18 14:53 Pulse 66 10/15/18 14:53 Resp 20 10/15/18 14:53 BP 154/91 10/15/18 14:53 Pulse Ox 98 10/15/18 14:53 Vital Signs Reviewed: Yes Eyes: Positive: Conjunctiva Clear ENT: Positive: Hearing grossly normal. Negative: Nasal congestion, Trismus, Muffled voice, Hoarse voice Neck: Positive: Supple, Nontender Respiratory: Positive: Lungs clear, Normal breath sounds, No respiratory distress, No accessory muscle use Cardiovascular: Positive: RRR, No Murmur Abdomen Description: Positive: Nontender, No Organomegaly, Soft. Negative: CVA Tenderness (R), CVA Tenderness (L) Male Genital Exam: Positive: Normal Genitalia - uncirc Musculoskeletal: Positive: ROM Intact, No Edema Neurological: Positive: Alert Psychological Exam: Normal Skin Exam: Normal Complaint Male Course/Dx - Differential Dx/Diagnosis Provider Diagnosis: Urethritis Discharge - Sign-Out/Discharge Documenting (check all that apply): Patient Departure All imaging exams completed and their final reports reviewed: No Studies - Discharge Plan Condition: Stable Disposition: HOME Prescriptions: DOXYcycline CAP(*) [DOXYcycline 100MG CAP(*)] 100 mg PO BID #14 cap Patient Education Materials: Nonspecific Urethritis in Men (ED) Referrals: Tianna Garcia MD [Primary Care Provider] - 6 Days (if not better) - Billing Disposition and Condition Condition: STABLE Disposition: Home
[2018-10-16 13:48] LABS: Neisseria gonorrhoeae (GC) RNA Negative (Negative)
== END 2018-10-15 15:52 | disposition home or self-care (01) ==
LOC: UCCORT 13:03
DX: N34.2 Other urethritis (principal); E78.5 Hyperlipidemia, unspecified; I10 Essential (primary) hypertension; I48.91 Unspecified atrial fibrillation; Z87.442 Personal history of urinary calculi
CPT/HCPCS: 81003; 87491; 87591; 99212; G0463

== ENCOUNTER 2021-06-13 11:45 | Inpatient (IN) ==
[2021-06-13 14:26] LABS: INR 1.1 (0.86-1.15)
[2021-06-13 14:34] LABS: ABS Eosinophils 0.1 10^3/ul (0-0.6); ABS Lymphocytes 0.9 10^3/ul (1.0-4.8); ABS Neutrophils 3.4 10^3/ul (1.5-7.7); Eosinophil % 2.3 %; Hematocrit 41 % (42-52); Hemoglobin 14.2 g/dL (14.0-18.0); Lymphocyte % 16.8 %; Mean Corpuscular HGB Conc 35 g/dL (31-36); Mean Corpuscular Hemoglobin 30 pg (27-31); Mean Corpuscular Volume 87 fL (80-94); Mean Platelet Volume 7.7 fL (7.4-10.4); Nucleated Red Blood Cells % 0.1; Platelet Count 140 10^3/uL (150-450); Red Blood Count 4.75 10^6 /uL (4.18-5.48); Red Cell Distribution Width 14 % (10-15); White Blood Count 5.4 10^3/uL (3.5-10.8)
[2021-06-13 14:37] LABS: Rapid COVID-19 Molecular Detected (Undetected)
[2021-06-13 14:38] LABS: Albumin 4.3 g/dL (3.2-5.2); Albumin/Globulin Ratio 1.3 (1-3); Calcium 9.2 mg/dL (8.6-10.3); Globulin 3.2 g/dL (2-4); Total Bilirubin 0.6 mg/dL (0.2-1.0); Total Protein 7.5 g/dL (6.4-8.9); eGFR CKD-EPI 63.1 (>60)
[2021-06-13 14:42] LABS: Potassium 5.2 mmol/L (3.5-5.0)
[2021-06-13] MEDS ORDERED: Morphine 4 MG/ML VIAL (1 ml) IV ONE (18:51)
[2021-06-13] MEDS ORDERED: Iohexol 350 (CONTRAST) 500 ML MDV IV ONE (18:53)
[2021-06-13] MEDS ORDERED: Magnesium Hydroxide LIQ 30 ML UDC PO PRN (23:40)
[2021-06-13] MEDS ORDERED: Al Hydrox/Mg Hydrox/Simet LIQ 30 ML UDC PO PRN (23:40)
[2021-06-13] MEDS ORDERED: Lactated Ringers 1000 ml BAG 1,000 ML IV SCH (23:45)
[2021-06-14] MEDS: Lidocaine PATCH 5% PATCH TRANSDERM SCH ×2 (00:11→08:58)
[2021-06-14] MEDS ORDERED: Remdesivir 100 mg Vial 200 MG in NS 0.9% 250 ml 210 ML IV ONE (00:30)
[2021-06-14] MEDS: Enoxaparin 40 MG/0.4 ML SYR SUBCUT SCH ×2 (03:19→21:41)
[2021-06-14 06:36] LABS: Hematocrit 40 % (42-52); Hemoglobin 13.5 g/dL (14.0-18.0); Mean Corpuscular HGB Conc 34 g/dL (31-36); Mean Corpuscular Hemoglobin 29 pg (27-31); Mean Corpuscular Volume 87 fL (80-94); Mean Platelet Volume 7.9 fL (7.4-10.4); Platelet Count 130 10^3/uL (150-450); Red Blood Count 4.59 10^6 /uL (4.18-5.48); Red Cell Distribution Width 14 % (10-15); White Blood Count 12.9 10^3/uL (3.5-10.8)
[2021-06-14 06:40] LABS: INR 1.21 (0.86-1.15)
[2021-06-14 06:59] LABS: Albumin/Globulin Ratio 1.3 (1-3); C Reactive Protein 45.1 mg/L (<8.01); Calcium 8.7 mg/dL (8.6-10.3); Globulin 3.2 g/dL (2-4); Total Bilirubin 0.5 mg/dL (0.2-1.0); Total Protein 7.2 g/dL (6.4-8.9); eGFR CKD-EPI 54.3 (>60)
[2021-06-14] MEDS ORDERED: Albuterol HFA INHALER 8 gm MDI INH PRN (08:35)
[2021-06-14] MEDS: Aspirin EC 81 mg TAB.EC (enteric coated) PO SCH (08:53)
[2021-06-14] MEDS: Multivitamins/Minerals TAB PO SCH (08:53)
[2021-06-14] MEDS: Lactated Ringers 1000 ml BAG 1,000 ML IV SCH ×2 (11:35→18:40)
[2021-06-14] MEDS: guaiFENesin/CODIENE 100mg/10mg 5 ML UDC PO PRN ×2 (18:59→22:50)
[2021-06-14] MEDS ORDERED: Remdesivir 100 mg Vial 100 MG in NS 0.9% 250 ml 230 ML IV SCH (21:00)
[2021-06-14] MEDS: Lidocaine Patch REMOVE NOTE PATCH OFF SCH (21:55)
[2021-06-15] MEDS: Multivitamins/Minerals TAB PO SCH (08:41)
[2021-06-15] MEDS: Lidocaine PATCH 5% PATCH TRANSDERM SCH (08:42)
[2021-06-15] MEDS: Aspirin EC 81 mg TAB.EC (enteric coated) PO SCH (08:42)
[2021-06-15] MEDS: Lactated Ringers 1000 ml BAG 1,000 ML IV SCH (14:27)
[2021-06-15] MEDS: guaiFENesin/CODIENE 100mg/10mg 5 ML UDC PO PRN (21:06)
[2021-06-15] MEDS: Enoxaparin 40 MG/0.4 ML SYR SUBCUT SCH (21:07)
[2021-06-15] MEDS: Lidocaine Patch REMOVE NOTE PATCH OFF SCH (21:07)
[2021-06-16] MEDS: Lactated Ringers 1000 ml BAG 1,000 ML IV SCH (00:45)
[2021-06-16] MEDS ORDERED: Ondansetron 4 mg VIAL 2 MG/ML 2 ml VIAL IV ONE (00:59)
[2021-06-16 07:05] LABS: INR 1.21 (0.86-1.15)
[2021-06-16 07:17] LABS: Albumin 3.3 g/dL (3.2-5.2); Albumin/Globulin Ratio 1.1 (1-3); Calcium 8.4 mg/dL (8.6-10.3); Potassium 4.1 mmol/L (3.5-5.0); Total Bilirubin 0.5 mg/dL (0.2-1.0); Total Protein 6.3 g/dL (6.4-8.9); eGFR CKD-EPI 84.5 (>60)
[2021-06-16] MEDS ORDERED: Benzocaine/Menthol LOZ MT PRN (08:05)
[2021-06-16] MEDS: Multivitamins/Minerals TAB PO SCH (08:27)
[2021-06-16] MEDS: Lidocaine PATCH 5% PATCH TRANSDERM SCH (08:27)
[2021-06-16] MEDS: Aspirin EC 81 mg TAB.EC (enteric coated) PO SCH (08:27)
[2021-06-16 11:23] VITALS: BP 145/68
== END 2021-06-16 13:50 | disposition home or self-care (01) | DRG 177 ==
LOC: ED 11:45 → EDHOLD 23:40 → SUATTDRO 23:40 → MED 06-14 00:32
PROVIDERS: ADMIT Internal Medicine; ATTEND Internal Medicine

== ENCOUNTER 2023-10-25 05:38 | Observation (INO) ==
[~2023-10-25 05:38] MED LIST: Naloxone 0.4 mg VIAL 0.4 mg/ml 1 ml VIAL IV PRN; Ondansetron 4 mg VIAL 2 MG/ML 2 ml VIAL IV PRN; fentaNYL 100 mcg/2 ml 50 MCG/ML VIAL IV PRN
[2023-10-25] MEDS ORDERED: ceFAZolin 2 GM PREMIX 2 GM/50 ML BAG ONE (06:02)
[2023-10-25 06:33] LABS: Rapid COVID-19 Molecular Undetected (Undetected)
[2023-10-25] MEDS ORDERED: ROPIVACAINE 5 MG/ML 30 ML BTL (0.5%) ONE (07:03)
[2023-10-25] MEDS ORDERED: Lidocaine 2% PF 5 ML VIAL ONE (07:04)
[2023-10-25] MEDS ORDERED: Propofol 10 MG/ML 20 ML BTL ONE (07:04)
[2023-10-25] MEDS ORDERED: Phenylephrine IV 10 MG/ML 1 ml VIAL ONE (07:04)
[2023-10-25] MEDS ORDERED: Midazolam 2 mg/2 ml VIAL 1 mg/ml 2 ml VIAL (2 mg) ONE (07:07)
[2023-10-25] MEDS ORDERED: fentaNYL 100 mcg/2 ml 50 MCG/ML VIAL ONE (07:08)
[2023-10-25] MEDS ORDERED: Rocuronium 50 mg VIAL 10 mg/ml 5 ml VIAL (50 mg) ONE (07:22)
[2023-10-25] MEDS ORDERED: Dexamethasone IV 4 MG/ML VIAL 1 ml VIAL ONE (07:53)
[2023-10-25] MEDS ORDERED: HYDROmorphone 0.5 MG/0.5 ML SYRINGE ONE ×2 (07:53→08:35)
[2023-10-25] MEDS ORDERED: Ondansetron 4 mg VIAL 2 MG/ML 2 ml VIAL ONE (07:53)
[2023-10-25] MEDS ORDERED: Acetaminophen IV 1 GM/100ML 1,000 MG/100 ML BAG IV ONE (08:28)
[2023-10-25] MEDS ORDERED: Ondansetron ODT 4 mg TAB 4 MG TAB PO PRN (10:13)
[2023-10-25] MEDS ORDERED: Magnesium Hydroxide LIQ 30 ML UDC PO PRN (10:13)
[2023-10-25] MEDS ORDERED: Morphine 2 MG/ML SYRINGE IV PRN (10:13)
[2023-10-25] MEDS ORDERED: Lactulose 30 ml UDC PO PRN (10:13)
[2023-10-25] MEDS ORDERED: Ondansetron 4 mg VIAL 2 MG/ML 2 ml VIAL IV PRN (10:13)
[2023-10-25] MEDS: Buffered Lidocaine 1% SYRIN 1 ml INTRADERM ONE (11:54)
[2023-10-25] MEDS: Lactated Ringers 1000 ml BAG 1,000 ML IV SCH ×2 (11:54→11:55)
[2023-10-25] MEDS: ceFAZolin 1 GM ADVAN 1 GM in NS 0.9% 50 ML 50 ML IVPB SCH (15:57)
[2023-10-25] MEDS: Magnesium Hydroxide LIQ 30 ML UDC PO SCH (21:30)
[2023-10-26 05:43] LABS: Hematocrit 33.5 % (38-53); Hemoglobin 11.6 g/dL (13.2-16.3); Mean Platelet Volume 7.6 fL (7.5-11.2); Platelet Count 128 10^3/uL (150-450)
[2023-10-26 06:12] LABS: Calcium 8.2 mg/dL (8.6-10.3); Creatinine, Serum 1.22 mg/dL (0.67-1.17); Potassium 4.1 mmol/L (3.5-5.0); eGFR CKD-EPI 60.7 (>60)
[2023-10-26] MEDS: Vitamin THERAPEUTIC TAB PO SCH (08:25)
[2023-10-27 06:13] LABS: Hematocrit 33.1 % (38-53); Hemoglobin 11.4 g/dL (13.2-16.3); Mean Platelet Volume 7.7 fL (7.5-11.2); Platelet Count 122 10^3/uL (150-450)
[2023-10-28 05:25] LABS: Hematocrit 33.3 % (38-53); Hemoglobin 11.5 g/dL (13.2-16.3); Mean Platelet Volume 7.8 fL (7.5-11.2); Platelet Count 124 10^3/uL (150-450)
[2023-10-29 05:23] LABS: Hematocrit 33.3 % (38-53); Hemoglobin 11.6 g/dL (13.2-16.3); Mean Platelet Volume 7.4 fL (7.5-11.2); Platelet Count 158 10^3/uL (150-450)
[2023-10-29 09:52] VITALS: BP 131/90
[2023-10-29 10:50] LABS: Rapid COVID-19 Molecular Undetected (Undetected)
== END 2023-10-29 12:43 | disposition home or self-care (01) ==
LOC: INTOOBSV 05:38 → AA 05:38 → SSU 11:39
PROVIDERS: ADMIT Orthopaedic Surgery Adult Reconstructive Orthopaedic Surgery; ATTEND Orthopaedic Surgery Adult Reconstructive Orthopaedic Surgery